=== PATIENT | male | born 1965 | race Caucasian/White ===

== ENCOUNTER 2018-07-22 14:31 | Inpatient (IN) | payer MEDICAID ==
[2018-07-22] MEDS: FAMOTIDINE 20 MG INJ IV (15:31)
[2018-07-22] MEDS: ONDANSETRON 4 MG INJ IV (15:31)
[2018-07-22] MEDS: SOD CHLORIDE 0.9% 1,000 ML IV ×2 (15:32→17:06)
[2018-07-22 16:33] LABS: HEMATOCRIT 43.3 % (42.0-52.0); HEMOGLOBIN 15.4 g/dl (14.0-18.0); MEAN CORPUSCULAR HEMOGLOBIN 31.6 pg (29.0-33.0); MEAN CORPUSCULAR HGB CONC 35.6 g/dl (32.0-37.0); MEAN CORPUSCULAR VOLUME 88.9 fl (82.0-101.0); MEAN PLATELET VOLUME 9.1 fl (7.4-10.4); PLATELET COUNT 239 10^3/UL (140-415); POSITIVE DIFF @See below; RED BLOOD COUNT 4.87 10^6/ul (4.70-6.10); RED CELL DISTRIBUTION WIDTH 12.1 % (11.5-14.5)
[2018-07-22 16:40] LABS: ADD MAN DIFF? YES
[2018-07-22 16:53] LABS: INR 1.12; PARTIAL THROMBOPLASTIN TIME 32.2 Sec (23.0-35.0); PROTIME 14.6 Sec (11.9-14.9); PT RATIO 1.1
[2018-07-22 16:54] LABS: ALANINE AMINOTRANSFERASE 19 IU/L (13-69); ALBUMIN 4.1 g/dl (3.3-4.9); ALBUMIN/GLOBULIN RATIO 1.36; ALKALINE PHOSPHATASE 65 IU/L (42-121); AMYLASE 65 U/L (11-123); ANION GAP 13 (5-13); ASPARTATE AMINO TRANSFERASE 18 IU/L (15-46); BLOOD UREA NITROGEN 11 mg/dl (7-20); CALCIUM 8.7 mg/dl (8.4-10.2); CARBON DIOXIDE 26 mmol/L (21-31); CHLORIDE 102 mmol/L (97-110); CREATININE 0.88 mg/dl (0.61-1.24); Estimated GFR > 60 mL/min (>60); GLUCOSE 97 mg/dl (70-220); LIPASE 82 U/L (23-300); SODIUM 141 mmol/L (135-144); TOTAL PROTEIN 7.1 g/dl (6.1-8.1)
[2018-07-22] MEDS: morphine 4 MG/ML VIAL IV (16:55)
[2018-07-22] MEDS: MECLIZINE 12.5 MG TAB PO (16:58)
[2018-07-22 17:04] LABS: TROPONIN-I < 0.012 ng/ml (0.000-0.120)
[2018-07-22] MEDS ORDERED: ONDANSETRON 4 MG INJ IV ×2 (17:30→18:30)
[2018-07-22] MEDS ORDERED: ACETAMINOPHEN 325 MG TAB PO (17:30)
[2018-07-22] MEDS ORDERED: morphine 2 MG INJ IV (18:30)
[2018-07-22] MEDS ORDERED: DOCUSATE SODIUM 100 MG CAP PO (18:30)
[2018-07-22] MEDS ORDERED: HYDROCODONE/APAP (5/325) TAB PO (18:30)
[2018-07-22] MEDS ORDERED: NACL 0.9% 3 ML SYG IV (18:30)
[2018-07-22] MEDS ORDERED: MAGNESIUM HYDROXIDE 30ML CUP PO (18:30)
[2018-07-22 19:24] LABS: ANISOCYTOSIS 1+ (0-0); BAND NEUTROPHILS #M 3.8 10^3/ul (0.0-0.6); BAND NEUTROPHILS % (M) 48 % (0-4); EOSINOPHILS % (M) 2 % (0-7); LYMPHOCYTES #M 1.4 10^3/ul (0.8-2.9); LYMPHOCYTES % (M) 18 % (15-51); MICROCYTOSIS 1+ (0-0); MONOCYTE #M 0.8 10^3/ul (0.3-0.9); MONOCYTES % (M) 10 % (0-11); PLATELET ESTIMATE NORMAL; POLYCHROMASIA 1+ (0-0); REACTIVE LYMPHOCYTES% (M) 1 % (0-0); SEGMENTED NEUTROPHILS (M) % 21 % (39-77); SMUDGE%M 2 % (0-0)
[2018-07-22] MEDS: POTASSIUM CHLORIDE (SR) 20 MEQ TAB PO ×2 (21:36→22:20)
[2018-07-22] MEDS: MECLIZINE 25 MG TAB PO (22:20)
[2018-07-23 06:26] LABS: ADD MAN DIFF? NO
[2018-07-23 06:30] LABS: WHITE BLOOD COUNT 6.5 10^3/ul (4.8-10.8)
[2018-07-23 06:30] LABS: BASOPHILS % 0.6 % (0.0-2.0); EOSINOPHILS # 0.2 10^3/ul (0.0-0.5); EOSINOPHILS % 2.6 % (0.0-7.0); HEMATOCRIT 39.3 % (42.0-52.0); LYMPHOCYTES # 1.2 10^3/ul (0.8-2.9); LYMPHOCYTES % 18.8 % (15.0-51.0); MEAN CORPUSCULAR HEMOGLOBIN 32.4 pg (29.0-33.0); MEAN CORPUSCULAR HGB CONC 35.6 g/dl (32.0-37.0); MEAN PLATELET VOLUME 9.1 fl (7.4-10.4); MONOCYTE # 0.8 10^3/ul (0.3-0.9); MONOCYTES % 12.3 % (0.0-11.0); NEUTROPHIL # 4.2 10^3/ul (1.6-7.5); NEUTROPHILS % 64.8 % (39.0-77.0); PLATELET COUNT 202 10^3/UL (140-415); POSITIVE DIFF @See below; RED BLOOD COUNT 4.32 10^6/ul (4.70-6.10); RED CELL DISTRIBUTION WIDTH 12.4 % (11.5-14.5)
[2018-07-23 06:48] LABS: ANION GAP 9 (5-13); BLOOD UREA NITROGEN 7 mg/dl (7-20); CALCIUM 8.3 mg/dl (8.4-10.2); CARBON DIOXIDE 26 mmol/L (21-31); CHLORIDE 106 mmol/L (97-110); CREATININE 0.88 mg/dl (0.61-1.24); Estimated GFR > 60 mL/min (>60); GLUCOSE 86 mg/dl (70-220); MAGNESIUM 1.6 mg/dl (1.7-2.5); POTASSIUM 3.7 mmol/L (3.5-5.1); SODIUM 141 mmol/L (135-144)
[2018-07-23] MEDS: MECLIZINE 25 MG TAB PO ×3 (08:39→21:00)
[2018-07-23] MEDS: ENOXAPARIN 40 MG/0.4 ML SYG SC (08:40)
[2018-07-23 09:21] LABS: ANISOCYTOSIS 1+ (0-0); BAND NEUTROPHILS #M 2.9 10^3/ul (0.0-0.6); BAND NEUTROPHILS % (M) 45 % (0-4); EOSINOPHILS % (M) 3 % (0-7); LYMPHOCYTES #M 0.7 10^3/ul (0.8-2.9); LYMPHOCYTES % (M) 11 % (15-51); MONOCYTE #M 0.9 10^3/ul (0.3-0.9); MONOCYTES % (M) 14 % (0-11); OVALOCYTES 1+ (0-0); PLATELET ESTIMATE NORMAL; POIKILOCYTOSIS 1+ (0-0); POLYCHROMASIA 1+ (0-0); REACTIVE LYMPHOCYTES #M 0.3 10^3/ul (0.0-0.0); REACTIVE LYMPHOCYTES% (M) 6 % (0-0); SEG NEUT #M 1.6 10^3/ul (1.6-7.5); SEGMENTED NEUTROPHILS (M) % 21 % (39-77); SMUDGE%M 3 % (0-0)
[2018-07-23] MEDS: POTASSIUM CHLORIDE (SR) 20 MEQ TAB PO (09:43)
[2018-07-23] MEDS: MAGNESIUM OXIDE 400 MG TAB PO (09:43)
[2018-07-23] MEDS: CYCLOBENZAPRINE 10 MG TAB PO ×2 (11:24→13:00)
[2018-07-23] MEDS: BACLOFEN 10 MG TAB PO (21:00)
[2018-07-24] MEDS: ACETAMINOPHEN 325 MG TAB PO ×2 (02:16→15:25)
[2018-07-24 06:07] LABS: ALBUMIN 3.3 g/dl (3.3-4.9); ANION GAP 10 (5-13); BLOOD UREA NITROGEN 7 mg/dl (7-20); CALCIUM 8.7 mg/dl (8.4-10.2); CARBON DIOXIDE 27 mmol/L (21-31); CHLORIDE 106 mmol/L (97-110); CREATININE 0.89 mg/dl (0.61-1.24); GLUCOSE 99 mg/dl (70-220); MAGNESIUM 1.9 mg/dl (1.7-2.5); PHOSPHORUS 3.4 mg/dl (2.5-4.9); POTASSIUM 3.5 mmol/L (3.5-5.1); SODIUM 143 mmol/L (135-144)
[2018-07-24] MEDS: ENOXAPARIN 40 MG/0.4 ML SYG SC (09:00)
[2018-07-24] MEDS: POTASSIUM CHLORIDE (SR) 20 MEQ TAB PO (09:35)
[2018-07-24] MEDS: MECLIZINE 25 MG TAB PO ×3 (09:35→21:00)
[2018-07-24] MEDS: BACLOFEN 10 MG TAB PO ×3 (09:35→21:00)
[2018-07-24] MEDS ORDERED: DOCUSATE SODIUM 100 MG CAP PO (12:00)
[2018-07-24] MEDS: MAGNESIUM HYDROXIDE 30ML CUP PO (13:04)
[2018-07-24] MEDS: HYDROCODONE/APAP (5/325) TAB PO (17:03)
[2018-07-25] MEDS: ONDANSETRON 4 MG INJ IV (07:22)
[2018-07-25] MEDS: MAGNESIUM HYDROXIDE 30ML CUP PO ×2 (09:00→12:21)
[2018-07-25] MEDS: BACLOFEN 10 MG TAB PO ×3 (09:59→20:20)
[2018-07-25] MEDS: MECLIZINE 25 MG TAB PO ×3 (09:59→13:25)
[2018-07-25] MEDS: ENOXAPARIN 40 MG/0.4 ML SYG SC (10:02)
[2018-07-26] MEDS: MECLIZINE 25 MG TAB PO ×3 (08:56→21:14)
[2018-07-26] MEDS: MAGNESIUM HYDROXIDE 30ML CUP PO (08:56)
[2018-07-26] MEDS: BACLOFEN 10 MG TAB PO ×3 (08:56→21:14)
[2018-07-26] MEDS: ENOXAPARIN 40 MG/0.4 ML SYG SC (08:58)
[2018-07-27 06:40] LABS: ADD MAN DIFF? NO
[2018-07-27 06:44] LABS: BASOPHIL # 0.1 10^3/ul (0.0-0.1); EOSINOPHILS # 0.1 10^3/ul (0.0-0.5); HEMATOCRIT 41.7 % (42.0-52.0); HEMOGLOBIN 14.6 g/dl (14.0-18.0); LYMPHOCYTES # 1.6 10^3/ul (0.8-2.9); LYMPHOCYTES % 27.3 % (15.0-51.0); MEAN CORPUSCULAR HEMOGLOBIN 31.9 pg (29.0-33.0); MEAN CORPUSCULAR VOLUME 91.2 fl (82.0-101.0); MEAN PLATELET VOLUME 8.4 fl (7.4-10.4); MONOCYTE # 0.4 10^3/ul (0.3-0.9); MONOCYTES % 7.3 % (0.0-11.0); NEUTROPHIL # 3.5 10^3/ul (1.6-7.5); NEUTROPHILS % 57.7 % (39.0-77.0); PLATELET COUNT 234 10^3/UL (140-415); POSITIVE DIFF @See below; RED BLOOD COUNT 4.57 10^6/ul (4.70-6.10); RED CELL DISTRIBUTION WIDTH 12.3 % (11.5-14.5)
[2018-07-27 07:34] LABS: ANION GAP 9 (5-13); BLOOD UREA NITROGEN 7 mg/dl (7-20); CARBON DIOXIDE 30 mmol/L (21-31); CHLORIDE 102 mmol/L (97-110); CREATININE 0.76 mg/dl (0.61-1.24); Estimated GFR > 60 mL/min (>60); GLUCOSE 101 mg/dl (70-220); MAGNESIUM 2.4 mg/dl (1.7-2.5); PHOSPHORUS 3.7 mg/dl (2.5-4.9); POTASSIUM 4.3 mmol/L (3.5-5.1); SODIUM 141 mmol/L (135-144)
[2018-07-27 08:46] LABS: ANISOCYTOSIS 2+ (0-0); BAND NEUTROPHILS #M 0.6 10^3/ul (0.0-0.6); BAND NEUTROPHILS % (M) 10 % (0-4); BASOPHIL #M 0.1 10^3/ul (0.0-0.0); BASOPHILS % (M) 3 % (0-2); EOSINOPHILS % (M) 2 % (0-7); ERYTHROBLAST% (NRBC) (M) 5 % (0-0); GIANT THROMBO% (M) 2 % (0-0); LYMPHOCYTES #M 1.3 10^3/ul (0.8-2.9); LYMPHOCYTES % (M) 22 % (15-51); METAMYELOCYTES #M 0.1 10^3/ul (0.0-0.0); METAMYELOCYTES %M 2 % (0-0); MONOCYTES % (M) 1 % (0-11); MYELOCYTES #M 0.1 10^3/ul (0.0-0.0); MYELOCYTES % (M) 2 % (0-0); PLATELET ESTIMATE NORMAL; POLYCHROMASIA 1+ (0-0); PROMYELOCYTES #M 0.1 10^3/ul (0-0); PROMYELOCYTES % (M) 2 % (0-0); SEG NEUT #M 3.4 10^3/ul (1.6-7.5); SEGMENTED NEUTROPHILS (M) % 56 % (39-77)
[2018-07-27] MEDS: ENOXAPARIN 40 MG/0.4 ML SYG SC (09:00)
[2018-07-27] MEDS: BACLOFEN 10 MG TAB PO ×2 (09:13→13:07)
[2018-07-27] MEDS: MAGNESIUM HYDROXIDE 30ML CUP PO (09:13)
[2018-07-27] MEDS: MECLIZINE 25 MG TAB PO ×2 (09:13→13:07)
== END 2018-07-27 14:35 | disposition home or self-care (01) | DRG 103 ==
LOC: E/R 14:31 → PP2 17:14
DX: F07.81 Postconcussional syndrome (principal); K59.00 Constipation, unspecified; R10.32 Left lower quadrant pain; M54.5 Low back pain; M62.838 Other muscle spasm
CPT/HCPCS: 70450; 80048; 80053; 80069; 82150; 83690; 83735; 84100; 84484; 85025; 85610; 85730; 87081; 93005; 96374; 96375; 97162; 97164; 97166; 99285-25; G0378